=== PATIENT | female | born 1990 | race African-American/Black ===

== ENCOUNTER 2016-10-05 18:00 | Emergency (ER) | payer OTHER ==
[~2016-10-05] VITALS: Ht 162.6 cm; Wt 94.3 kg
[2016-10-05 19:19] VITALS: BP 126/76
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
== END 2016-10-05 19:20 | disposition home or self-care (01) ==
LOC: ER 18:00
DX: Z34.02 Encounter for supervision of normal first pregnancy, second trimester (principal); O16.2 Unspecified maternal hypertension, second trimester; O99.512 Diseases of the respiratory system complicating pregnancy, second trimester; J45.909 Unspecified asthma, uncomplicated; O99.322 Drug use complicating pregnancy, second trimester; F12.10 Cannabis abuse, uncomplicated; Z3A.17 17 weeks gestation of pregnancy; Z88.5 Allergy status to narcotic agent
CPT/HCPCS: 99281; 99283

== ENCOUNTER 2021-05-17 12:39 | Emergency (ER) | payer MEDICAID, OTHER ==
[~2021-05-17] VITALS: Ht 162.6 cm; Wt 105.7 kg
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
[2021-05-17 13:27] LABS: BASO % 1 % (0-3); EOS # 0.1 x10^3/uL (0.0-0.7); EOS % 3 % (0-3); HEMATOCRIT 39.5 % (36.0-47.0); HEMOGLOBIN 12.8 g/dL (12.0-15.5); LYMPH # 2.2 x10^3/uL (1.0-4.8); LYMPH % 40 % (24-48); MEAN CORPUSCULAR HEMOGLOBIN 25 pg (25-35); MEAN CORPUSCULAR HGB CONC 32 g/dL (31-37); MEAN CORPUSCULAR VOLUME 77 fL (79-100); MONO # 0.3 x10^3/uL (0.0-1.1); MONO % 6 % (0-9); NEUT # 2.7 x10^3/uL (1.8-7.7); NEUT % 50 % (31-73); PLATELET COUNT 194 x10^3/uL (140-400); RED BLOOD COUNT 5.15 x10^6/uL (3.50-5.40); RED CELL DISTRIBUTION WIDTH 14.1 % (11.5-14.5); WHITE BLOOD COUNT 5.4 x10^3/uL (4.0-11.0)
[2021-05-17 13:36] LABS: BILIRUBIN,URINE NEGATIVE (NEG); CLARITY,URINE CLEAR; COLOR,URINE YELLOW; NITRITE,URINE NEGATIVE (NEG); PROTEIN,URINE NEGATIVE (NEG-TRACE); UROBILINOGEN,URINE 0.2 mg/dL (0.2 mg/dL)
[2021-05-17 13:39] LABS: CALCIUM 9.1 mg/dL (8.5-10.1); CREATININE 0.8 mg/dL (0.6-1.0); GFR 100.6; POTASSIUM 3.9 mmol/L (3.5-5.1)
[2021-05-17 13:41] LABS: BACTERIA,URINE FEW /HPF (0-FEW)
[2021-05-17] MEDS ORDERED: IOHEXOL 300 MG/ML 100ML VIAL. IV ONE (14:00)
--- NOTE | 2021-05-17 15:17 | RAD ---
Exam: CT of abdomen and pelvis with contrast INDICATION: Abdominal pain, upper abdomen, history of hysterectomy TECHNIQUE: Sequential axial images through the abdomen and pelvis obtained following the administrati on of 74 mL of Isovue-370 IV contrast. Sagittal and coronal reformatted images were reconstructed fro m the axial data and reviewed. Exposure: One or more of the following in the visualized dose reduction techniques were utilized for this examination: 1. Automated exposure control 2. Adjustment of the MA and/or KV according to patient size 3. Use of iterative of reconstructive technique Comparisons: None FINDINGS: Heart size is normal. No pericardial effusion. Visualized lung bases are clear. No pleural effusion. Vague hypoattenuating lesions within the right and left hepatic lobe. On the right measures approxima tely 2 cm on series 2 image 21 and on the right measures approximately 1.6 cm. Spleen, pancreas, gallbladder and adrenals are unremarkable. No perinephric inflammation or hydronephrosis. No renal or ureteral calculi are identified. Bladder is partially distended and not well evaluated. Uterus is absent. There is a cystic lesion at the right adnexa which measures approximately 4.5 cm in long axis. Large and small bowel are unremarkable. Appendix is normal. No free intra-abdominal air or fluid. No obstruction. Abdominal aorta has normal course and caliber. Abdominal vasculature is patent. No enlarged intra-abdominal lymph nodes are identified. No suspicious osseous lesions or acute fractures. There is a soft tissue nodule in the supraumbilical subcutaneous fat which measures approximately 2 cm in diameter. IMPRESSION: 1. Soft tissue nodule in the supraumbilical midline subcutaneous fat measuring approximately 2 cm. T his is nonspecific however in this setting of prior hysterectomy could relate to an endometrioma. Cor relate with symptomatology for cyclical pain in that region. 2. At least 2 vague hypoattenuating areas within the liver which are now well characterized on this study. Findings could relate to hemangiomas. Further evaluation with nonemergent/outpatient liver pro tocol MRI (ideally with Eovist contrast) is recommended. Electronically signed by: Raymond Damon MD (05/17/2021 3:15 PM) [facility]
[2021-05-17 15:56] VITALS: BP 139/78
[2021-05-17] MEDS ORDERED: HYDR-2761 PO (15:56)
== END 2021-05-17 16:01 | disposition home or self-care (01) ==
LOC: ER 12:39
DX: R10.13 Epigastric pain (principal); J45.909 Unspecified asthma, uncomplicated; I10 Essential (primary) hypertension; Z87.891 Personal history of nicotine dependence; Z90.710 Acquired absence of both cervix and uterus; Z88.6 Allergy status to analgesic agent
CPT/HCPCS: 36415; 74177; 80048; 81001; 85025; 99285; Q9967